=== PATIENT | female | born 1985 | race Two or more races ===

== ENCOUNTER 2016-06-23 10:54 | Day surgery (SDC) | payer BC, MEDICAID ==
[~2016-06-23 10:54] MED LIST: LIDOCAINE 1% 2 ML VIAL ID PRN
[2016-06-23] MEDS ORDERED: LACTATED RINGERS 1,000 ML IV SCH (11:00)
[2016-06-23] MEDS ORDERED: PROPOFOL 20 ML IV ONE ×3 (11:27→12:56)
[2016-06-23] MEDS ORDERED: IV START KIT ONE (11:27)
[2016-06-23] MEDS ORDERED: ONDANSETRON 4 MG/2ML 2 ML VIAL ONE (11:27)
[2016-06-23] MEDS ORDERED: LACTATED RINGERS 1,000 ML ONE (11:27)
[2016-06-23] MEDS ORDERED: LIDOCAINE 2% (PRES FREE) 5 ML VIAL ONE (11:27)
[2016-06-23] MEDS ORDERED: MIDAZOLAM HCL 5 MG/5 ML VIAL ONE (11:27)
[2016-06-23] MEDS ORDERED: FENTANYL 100 MCG/2 ML VIAL ONE ×2 (11:27→12:48)
[2016-06-23 11:48] LABS: HEMOGLOBIN 14.5 gm/l (12.0-16.0); MEAN CELL VOLUME 87.6 fl (81.0-99.0); MEAN CORPUSCULAR HEMOGLOBIN 29.5 pg (27.0-31.0); MEAN CORPUSCULAR HGB CONC 33.7 g/dl (33.0-37.0); RED CELL DISTRIBUTION WIDTH 12.2 % (11.5-14.5)
[2016-06-23] MEDS ORDERED: SODIUM CHLORIDE 0.9% FLUSH 10 ML ONE (12:18)
[2016-06-23] MEDS ORDERED: DEXAMETHASONE SOD PHOS 4 MG/1 ML VIAL ONE (12:31)
[2016-06-23] MEDS ORDERED: KETOROLAC TROMETHAMINE 30 MG/ML 1 ML VIAL ONE (13:00)
[2016-06-23] MEDS ORDERED: HYDROCODONE/ACETAMINOPHEN 5/325MG TABLET PO PRN (14:35)
[2016-06-23] MEDS ORDERED: IBUPROFEN 800 MG TABLET PO PRN (14:35)
[2016-06-23] MEDS ORDERED: ONDANSETRON 4 MG/2ML 2 ML VIAL IV PRN (14:35)
[2016-06-23] MEDS ORDERED: SODIUM CHLORIDE 0.9% 1,000 ML IV SCH (14:35)
--- NOTE | 2016-06-26 10:48 | SURGPATH ---
[facility] [address] [place] [id number] Patient Name: AMELIE PUENTES MR#: [id number] : 1985 Gender: F Specimen #: [id number] Collected: 06/23/2016 Received: 06/25/2016 Reported: 06/26/2016 Submitting Phys: MICHAEL VILLA Copy To Phys: [facility] Clinical History / Pre-Operative Diagnosis: Incomplete spontaneous AB Specimen Source / Surgical Procedure Performed: Products of conception Interpretation: PRODUCTS OF CONCEPTION: - CHORIONIC VILLI REPRESENTING PRODUCTS OF CONCEPTION Electronically Signed Out Konrad Garrett M.D. Gross Description: The specimen is received in a formalin filled container labeled with the patient's name and "products of conception". An aggregate of ambrosio tissue admixed with hemorrhagic material is 4.5 x 4.5 x 2 cm. Included is spongy, membranous, placenta-like tissue. No grossly recognizable tissue is appreciated. Two outside sales representative sections are submitted in one cassette. Ghanshyam Fontanez Microscopic Description: Sections show degenerating chorionic villi representing products of conception. 1: 56259 O03.4
== END 2016-06-23 15:30 | disposition home or self-care (01) ==
LOC: SDC 10:54
PROVIDERS: ATTEND Family Medicine
PROC: 10D17ZZ Extraction of Products of Conception, Retained, Via Natural or Artificial Opening (ICD-10-PCS; principal; 2016-06-23)
DX: O02.1 Missed abortion (principal); K21.9 Gastro-esophageal reflux disease without esophagitis; K59.00 Constipation, unspecified; O34.81 Maternal care for other abnormalities of pelvic organs, first trimester; N81.10 Cystocele, unspecified
CPT/HCPCS: 85027; 86901; 86850 ×3; 59820; J3010 ×2; J1100; J1885; J2250; J2405; J7120